=== PATIENT | female | born 1970 | race African-American/Black ===

== ENCOUNTER 2022-08-16 17:58 | Emergency (ER) | payer OTHER, SELFPAY ==
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
[2022-08-16 18:13] VITALS: BP 221/117; PULSE 86; RESP 16; TEMP 36.5; O2SAT 98
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
[2022-08-16 18:40] VITALS: BP 188/118; PULSE 96
[2022-08-16] MEDS: KETOROLAC (*BKC) 60 MG/2 ML VIAL IM (18:45)
[2022-08-16] MEDS: cloNIDine HCL 0.1 MG TABLET PO (18:46)
[2022-08-16 19:02] VITALS: BP 167/110
== END 2022-08-16 19:02 | disposition short-term general hospital (02) ==
PROVIDERS: Emergency Provider Nurse Practitioner
DX: S39.012A Strain of muscle, fascia and tendon of lower back, initial encounter (principal); V46.7XXA Person on outside of car injured in collision with other nonmotor vehicle in traffic accident, initial encounter; S16.1XXA Strain of muscle, fascia and tendon at neck level, initial encounter; I10 Essential (primary) hypertension
CPT/HCPCS: 72040; 72100; 96374; 99213; A9270; G0463; J1885; L0140